=== PATIENT | male | born 1945 | race Asian ===

== ENCOUNTER 2021-03-09 18:15 | Emergency (ER) | payer OTHER ==
[~2021-03-09] VITALS: Ht 180.3 cm; Wt 63.5 kg
[2021-03-09 18:53] VITALS: BP 102/68
[2021-03-09 19:43] LABS: BASOPHILS % (AUTO) 0.2 % (0.0-2.0); EOSINOPHILS # (AUTO) 0.1 K/uL (0-0.4); EOSINOPHILS % (AUTO) 2.3 % (0.0-4.0); HEMATOCRIT 40.8 % (36-52); HEMOGLOBIN 13.5 g/dL (12.0-18.0); LYMPHOCYTES # (AUTO) 1.2 K/uL (2.0-11.5); LYMPHOCYTES % (AUTO) 22.1 % (20.5-51.1); MEAN CORPUSCULAR HEMOGLOBIN 30 pg (27-31); MEAN CORPUSCULAR HGB CONC 33 g/dL (33-37); MEAN CORPUSCULAR VOLUME 90.6 fL (80-94); MONOCYTES # (AUTO) 0.4 K/uL (0.8-1.0); MONOCYTES % (AUTO) 7.2 % (1.7-9.3); NEUTROPHILS # (AUTO) 3.6 K/uL (1.8-7.7); NEUTROPHILS % (AUTO) 68.2 % (42.2-75.2); PLATELET COUNT (AUTO) 332 K/uL (140-450); RED BLOOD CELL COUNT(AUTO) 4.51 MIL/uL (4.20-6.10); RED CELL DISTRIBUTION WIDTH 13.4 % (11.6-13.7); WHITE BLOOD COUNT (AUTO) 5.3 K/uL (4.8-10.8)
[2021-03-09 19:55] LABS: ALBUMIN 3.4 g/dL (3.4-5.0); ANION GAP 12.4 (8-16); ASPARTATE AMINOTRANSFERASE 12 U/L (15-37); CARBON DIOXIDE 25.9 mmol/L (21-32); CHLORIDE 103 mmol/L (98-107); CREATININE 2.1 mg/dL (0.6-1.3); GLUCOSE 194 mg/dL (74-106); POTASSIUM 4.3 mmol/L (3.5-5.1); SODIUM SERUM 137 mmol/L (136-145); TOTAL BILIRUBIN 0.6 mg/dL (0.0-1.0); UREA NITROGEN, BLOOD 33 mg/dL (7-18)
[2021-03-09] MEDS ORDERED: NACL 0.9% 1,000 ML IV ONE (20:10)
[2021-03-10 10:35] VITALS: BP 139/69
== END 2021-03-10 10:39 | disposition designated cancer center or children's hospital (05) ==
LOC: MED 18:15
DX: N18.9 Chronic kidney disease, unspecified (principal); E86.0 Dehydration; F03.90 Unspecified dementia, unspecified severity, without behavioral disturbance, psychotic disturbance, mood disturbance, and anxiety; E11.9 Type 2 diabetes mellitus without complications; F39 Unspecified mood [affective] disorder; Z86.73 Personal history of transient ischemic attack (TIA), and cerebral infarction without residual deficits
CPT/HCPCS: 36415; 80053; 85025; 96360; 99283; J7030

== ENCOUNTER 2021-04-18 05:45 | Inpatient (IN) | payer OTHER, SELFPAY ==
[~2021-04-18] VITALS: Ht 180.3 cm; Wt 49.9 kg
[2021-04-18 05:45] VITALS: BP 126/73
[2021-04-18] MEDS ORDERED: NACL 0.9% 1,000 ML IV ONE ×2 (06:15→07:20)
[2021-04-18] MEDS ORDERED: LEVALBUTEROL 0.63 MG/3 ML NEBU INH ONE (06:15)
[2021-04-18] MEDS ORDERED: HYDR100T49 PO (06:18)
[2021-04-18] MEDS ORDERED: DOCU-299 PO (06:18)
[2021-04-18] MEDS ORDERED: METO25TE2 PO (06:18)
[2021-04-18] MEDS ORDERED: TAMS0.4C96 PO (06:18)
[2021-04-18] MEDS ORDERED: SIMV20TA1 PO (06:18)
[2021-04-18] MEDS ORDERED: OMEP20TC10 PO (06:18)
[2021-04-18] MEDS ORDERED: LACT1CAP50 PO (06:18)
[2021-04-18] MEDS ORDERED: AMLO5TAB PO (06:18)
[2021-04-18] MEDS ORDERED: SODI650T2 PO (06:18)
[2021-04-18 06:26] LABS: HEMATOCRIT 45.3 % (36-52); HEMOGLOBIN 14.9 g/dL (12.0-18.0); MEAN CORPUSCULAR HEMOGLOBIN 31 pg (27-31); MEAN CORPUSCULAR HGB CONC 33 g/dL (33-37); MEAN CORPUSCULAR VOLUME 93.9 fL (80-94); PLATELET COUNT (AUTO) 443 K/uL (140-450); RED BLOOD CELL COUNT(AUTO) 4.83 MIL/uL (4.20-6.10); RED CELL DISTRIBUTION WIDTH 15.1 % (11.6-13.7); WHITE BLOOD COUNT (AUTO) 21.4 K/uL (4.8-10.8)
[2021-04-18 06:48] LABS: LYMPHOCYTES % (MANUAL) 6 % (20-46); MONOCYTES % (MANUAL) 9 % (5-12)
[2021-04-18] MEDS ORDERED: PIPERACILLIN/TAZOBACTAM 3.375 GM in DEXTROSE 5% 50 ML IV ONE (07:00)
[2021-04-18 07:05] LABS: ALBUMIN 2.4 g/dL (3.4-5.0); ANION GAP 25.7 (8-16); ASPARTATE AMINOTRANSFERASE 18 U/L (15-37); CHLORIDE 117 mmol/L (98-107); CREATININE 3.8 mg/dL (0.6-1.3); GLUCOSE 219 mg/dL (74-106); LIPASE 113 U/L (73-393); POTASSIUM 4.7 mmol/L (3.5-5.1); SODIUM SERUM 153 mmol/L (136-145); TOTAL BILIRUBIN 0.5 mg/dL (0.0-1.0)
[2021-04-18 07:09] LABS: PROTHROMBIN TIME 11.3 secs (10.8-13.4)
[2021-04-18 07:13] LABS: UREA NITROGEN, BLOOD 124 mg/dL (7-18)
[2021-04-18] MEDS ORDERED: ASPIRIN 600 MG SUPP RC ONE (07:20)
[2021-04-18] MEDS ORDERED: PIPERACILLIN/TAZOBACTAM 3.375 GM VIAL IV ONE (07:27)
[2021-04-18 07:33] LABS: APPEARANCE,URINE CLEAR (CLEAR); BILIRUBIN,URINE NEGATIVE (NEGATIVE); BLOOD, URINE NEGATIVE (NEGATIVE); COLOR,URINE YELLOW (YELLOW); LEUKOCYTE ESTERASE ,URINE NEGATIVE (NEGATIVE); NITRITE, URINE NEGATIVE (NEGATIVE); PH,URINE 5.5 (5.0-9.0); UGLUCOSE NEGATIVE (NEGATIVE)
[2021-04-18 07:39] LABS: RBC,URINE 0-5 /HPF (0-5); URINE AMORPHOUS URATE 1+ /HPF (None Seen); WBC,URINE 0-5 /HPF (0-5)
[2021-04-18] MEDS ORDERED: ACETAMINOPHEN 325 MG TAB PO PRN (08:50)
[2021-04-18] MEDS ORDERED: ONDANSETRON 4 MG/2 ML VIAL IM/IVP PRN (08:50)
[2021-04-18] MEDS ORDERED: HYDROcodone/APAP 7.5/325 MG 1 TAB PO PRN (08:50)
[2021-04-18] MEDS ORDERED: DOCUSATE SODIUM 100 MG GELCAP PO PRN (08:50)
[2021-04-18] MEDS ORDERED: ZOLPIDEM 5 MG TAB PO PRN (08:50)
[2021-04-18] MEDS ORDERED: POTASSIUM CHLORIDE 10 MEQ TABER PO PRN (08:50)
[2021-04-18] MEDS ORDERED: guaiFENesin DM 200/20 MG-10 ML 10 ML UDC PO PRN (08:50)
[2021-04-18] MEDS ORDERED: NACL 0.9% 1,000 ML IV SCH (08:55)
[2021-04-18] MEDS ORDERED: NON-FORMULARY ITEM (Hydralazine HCl (Hydralazine Hcl) 1 TAB) PO SCH (09:00)
[2021-04-18 09:35] VITALS: BP 113/47
[2021-04-18 10:10] LABS: CHOL/HDL RATIO 3.3 (1-4.5); FREE T4 (FREE THYROXINE) 1.02 ng/dL (0.76-1.46); MAGNESIUM 2.9 mg/dL (1.8-2.4); PHOSPHORUS 5.8 mg/dL (2.5-4.9); THYROID STIMULATING HORMONE 0.94 uIU/mL (0.34-3.74)
[2021-04-18] MEDS: amLODIPine 5 MG TAB PO SCH (11:02)
[2021-04-18] MEDS: PANTOPRAZOLE 40 MG TABEC PO SCH (11:03)
[2021-04-18 12:00] VITALS: BP 114/51
[2021-04-18] MEDS: hydrALAZINE 25 MG TAB PO SCH ×2 (13:00→21:45)
[2021-04-18] MEDS: PIPERACILLIN/TAZOBACTAM 2.25 GM in DEXTROSE 5% 50 ML IV SCH ×2 (13:24→22:18)
[2021-04-18] MEDS: HYDRAGUARD CREAM TP SCH (13:24)
[2021-04-18] MEDS: THERAHONEY GEL 42.5 GM TP SCH (13:25)
[2021-04-18 16:00] VITALS: BP 118/62
[2021-04-18] MEDS: NACL 0.45% 1,000 ML IV SCH ×2 (17:15→22:10)
[2021-04-18 20:00] VITALS: BP 128/63
[2021-04-18] MEDS: TAMSULOSIN 0.4 MG CAP PO SCH (21:45)
[2021-04-18] MEDS: SIMVASTATIN 20 MG TAB PO SCH (21:46)
[2021-04-19] VITALS: BP 112/50
[2021-04-19] MEDS: HYDRAGUARD CREAM TP SCH ×2 (01:37→12:45)
[2021-04-19 04:00] VITALS: BP 175/103
[2021-04-19] MEDS: hydrALAZINE 25 MG TAB PO SCH ×3 (05:00→20:04)
[2021-04-19] MEDS: PIPERACILLIN/TAZOBACTAM 2.25 GM in DEXTROSE 5% 50 ML IV SCH ×3 (05:27→20:06)
[2021-04-19 06:06] LABS: BASOPHILS % (AUTO) 0.1 % (0.0-2.0); HEMATOCRIT 36.3 % (36-52); HEMOGLOBIN 12.1 g/dL (12.0-18.0); LYMPHOCYTES # (AUTO) 0.9 K/uL (2.0-11.5); LYMPHOCYTES % (AUTO) 7.6 % (20.5-51.1); MEAN CORPUSCULAR HEMOGLOBIN 31 pg (27-31); MEAN CORPUSCULAR HGB CONC 33 g/dL (33-37); MEAN CORPUSCULAR VOLUME 93.5 fL (80-94); MONOCYTES # (AUTO) 0.9 K/uL (0.8-1.0); MONOCYTES % (AUTO) 7.9 % (1.7-9.3); NEUTROPHILS # (AUTO) 9.8 K/uL (1.8-7.7); NEUTROPHILS % (AUTO) 84.4 % (42.2-75.2); PLATELET COUNT (AUTO) 260 K/uL (140-450); RED BLOOD CELL COUNT(AUTO) 3.88 MIL/uL (4.20-6.10); RED CELL DISTRIBUTION WIDTH 15.2 % (11.6-13.7); WHITE BLOOD COUNT (AUTO) 11.7 K/uL (4.8-10.8)
[2021-04-19 06:07] LABS: T4 (THYROXINE) 5.1 ug/dL (4.5-12.0)
[2021-04-19 07:10] LABS: CARBON DIOXIDE 13.2 mmol/L (21-32); CHLORIDE 122 mmol/L (98-107); CREATININE 3.4 mg/dL (0.6-1.3); GLUCOSE 235 mg/dL (74-106); POTASSIUM 4.2 mmol/L (3.5-5.1)
[2021-04-19 07:34] LABS: SODIUM SERUM 157 mmol/L (136-145); UREA NITROGEN, BLOOD 104 mg/dL (7-18)
[2021-04-19 08:00] VITALS: BP 109/54
[2021-04-19] MEDS: amLODIPine 5 MG TAB PO SCH (08:52)
[2021-04-19] MEDS: ASPIRIN 81 MG TAB.CHEW PO SCH (08:52)
[2021-04-19] MEDS: PANTOPRAZOLE 40 MG TABEC PO SCH (08:52)
[2021-04-19] MEDS: METOPROLOL SUCCINATE 50 MG TABER PO SCH (08:52)
[2021-04-19] MEDS: NACL 0.45% 1,000 ML IV SCH (09:00)
[2021-04-19] MEDS ORDERED: METOPROLOL 25 MG TAB PO SCH (09:00)
[2021-04-19] MEDS: DEXTROSE 5% 1,000 ML IV SCH ×2 (10:30→20:12)
[2021-04-19 12:00] VITALS: BP 109/72
[2021-04-19 12:26] LABS: CHLORIDE,URINE RANDOM 36 mmol/L (110-250); URINE SODIUM, RANDOM 13 mmol/l (40-220)
[2021-04-19] MEDS: THERAHONEY GEL 42.5 GM TP SCH (12:46)
[2021-04-19 16:00] VITALS: BP 112/43
[2021-04-19 20:00] VITALS: BP 109/53
[2021-04-19] MEDS: SIMVASTATIN 20 MG TAB PO SCH (20:05)
[2021-04-19] MEDS: TAMSULOSIN 0.4 MG CAP PO SCH (20:06)
[2021-04-20] VITALS: BP 108/52
[2021-04-20] MEDS: HYDRAGUARD CREAM TP SCH ×2 (01:26→13:00)
[2021-04-20 04:00] VITALS: BP 116/50
[2021-04-20] MEDS: hydrALAZINE 25 MG TAB PO SCH ×3 (05:00→20:53)
[2021-04-20] MEDS: PIPERACILLIN/TAZOBACTAM 2.25 GM in DEXTROSE 5% 50 ML IV SCH ×3 (05:15→20:26)
[2021-04-20 05:34] LABS: ANION GAP 16.2 (8-16); CARBON DIOXIDE 17.5 mmol/L (21-32); CHLORIDE 117 mmol/L (98-107); GLUCOSE 248 mg/dL (74-106); POTASSIUM 3.7 mmol/L (3.5-5.1); SODIUM SERUM 147 mmol/L (136-145)
[2021-04-20 05:56] LABS: UREA NITROGEN, BLOOD 78 mg/dL (7-18)
[2021-04-20 06:14] LABS: BASOPHILS % (AUTO) 0.1 % (0.0-2.0); EOSINOPHILS # (AUTO) 0.1 K/uL (0-0.4); EOSINOPHILS % (AUTO) 0.8 % (0.0-4.0); HEMOGLOBIN 11.6 g/dL (12.0-18.0); LYMPHOCYTES # (AUTO) 1.4 K/uL (2.0-11.5); LYMPHOCYTES % (AUTO) 14.1 % (20.5-51.1); MEAN CORPUSCULAR HEMOGLOBIN 31 pg (27-31); MEAN CORPUSCULAR HGB CONC 33 g/dL (33-37); MEAN CORPUSCULAR VOLUME 94.2 fL (80-94); MONOCYTES # (AUTO) 0.6 K/uL (0.8-1.0); MONOCYTES % (AUTO) 6.3 % (1.7-9.3); NEUTROPHILS % (AUTO) 78.7 % (42.2-75.2); PLATELET COUNT (AUTO) 257 K/uL (140-450); RED BLOOD CELL COUNT(AUTO) 3.72 MIL/uL (4.20-6.10); RED CELL DISTRIBUTION WIDTH 14.9 % (11.6-13.7); WHITE BLOOD COUNT (AUTO) 10.1 K/uL (4.8-10.8)
[2021-04-20] MEDS: DEXTROSE 5% 1,000 ML IV SCH (06:20)
[2021-04-20 08:00] VITALS: BP 108/57
[2021-04-20] MEDS: amLODIPine 5 MG TAB PO SCH (09:00)
[2021-04-20] MEDS: PANTOPRAZOLE 40 MG TABEC PO SCH (09:00)
[2021-04-20] MEDS: ASPIRIN 81 MG TAB.CHEW PO SCH (09:00)
[2021-04-20] MEDS: METOPROLOL SUCCINATE 50 MG TABER PO SCH (09:00)
[2021-04-20] MEDS: NACL 0.45% 1,000 ML IV SCH ×2 (10:27→20:52)
[2021-04-20 12:00] VITALS: BP 115/60
[2021-04-20] MEDS: THERAHONEY GEL 42.5 GM TP SCH (13:00)
[2021-04-20 16:00] VITALS: BP 112/43
[2021-04-20 20:00] VITALS: BP 118/79
[2021-04-20] MEDS: SIMVASTATIN 20 MG TAB PO SCH (20:53)
[2021-04-20] MEDS: TAMSULOSIN 0.4 MG CAP PO SCH (20:53)
[2021-04-21] VITALS: BP 119/64
[2021-04-21] MEDS: NACL 0.45% 1,000 ML IV SCH (00:17)
[2021-04-21] MEDS: HYDRAGUARD CREAM TP SCH ×2 (01:29→13:00)
[2021-04-21 04:00] VITALS: BP 113/60
[2021-04-21] MEDS: hydrALAZINE 25 MG TAB PO SCH ×4 (05:00→21:29)
[2021-04-21] MEDS: PIPERACILLIN/TAZOBACTAM 2.25 GM in DEXTROSE 5% 50 ML IV SCH ×3 (05:09→21:29)
[2021-04-21 07:32] LABS: ANION GAP 18.8 (8-16); CARBON DIOXIDE 14.8 mmol/L (21-32); CHLORIDE 114 mmol/L (98-107); CREATININE 2.5 mg/dL (0.6-1.3); GLUCOSE 138 mg/dL (74-106); POTASSIUM 3.6 mmol/L (3.5-5.1); SODIUM SERUM 144 mmol/L (136-145); UREA NITROGEN, BLOOD 58 mg/dL (7-18)
[2021-04-21 07:33] LABS: BASOPHILS % (AUTO) 0.1 % (0.0-2.0); EOSINOPHILS # (AUTO) 0.1 K/uL (0-0.4); EOSINOPHILS % (AUTO) 0.5 % (0.0-4.0); HEMOGLOBIN 12.3 g/dL (12.0-18.0); LYMPHOCYTES # (AUTO) 1.3 K/uL (2.0-11.5); LYMPHOCYTES % (AUTO) 9.7 % (20.5-51.1); MEAN CORPUSCULAR HEMOGLOBIN 31 pg (27-31); MEAN CORPUSCULAR HGB CONC 33 g/dL (33-37); MEAN CORPUSCULAR VOLUME 91.7 fL (80-94); MONOCYTES # (AUTO) 0.7 K/uL (0.8-1.0); MONOCYTES % (AUTO) 5.2 % (1.7-9.3); NEUTROPHILS # (AUTO) 11.5 K/uL (1.8-7.7); NEUTROPHILS % (AUTO) 84.5 % (42.2-75.2); PLATELET COUNT (AUTO) 241 K/uL (140-450); RED BLOOD CELL COUNT(AUTO) 4.03 MIL/uL (4.20-6.10); RED CELL DISTRIBUTION WIDTH 14.4 % (11.6-13.7); WHITE BLOOD COUNT (AUTO) 13.6 K/uL (4.8-10.8)
[2021-04-21 08:00] VITALS: BP 120/61
[2021-04-21] MEDS: PANTOPRAZOLE 40 MG TABEC PO SCH (09:00)
[2021-04-21] MEDS: amLODIPine 5 MG TAB PO SCH (09:41)
[2021-04-21] MEDS: METOPROLOL SUCCINATE 50 MG TABER PO SCH (09:41)
[2021-04-21] MEDS: ASPIRIN 81 MG TAB.CHEW PO SCH (09:41)
[2021-04-21] MEDS: DEXT 5% / NACL 0.45% 1,000 ML IV SCH ×2 (11:36→23:20)
[2021-04-21 12:00] VITALS: BP_SYST 125; BP_DIAS 53; BP_DIAS 63
[2021-04-21] MEDS: THERAHONEY GEL 42.5 GM TP SCH (13:00)
[2021-04-21 16:00] VITALS: BP 117/62
[2021-04-21 20:00] VITALS: BP 120/61
[2021-04-21] MEDS: TAMSULOSIN 0.4 MG CAP PO SCH ×2 (21:00→21:30)
[2021-04-21] MEDS: SIMVASTATIN 20 MG TAB PO SCH (21:30)
[2021-04-22] VITALS (67 sets, daily range): BP systolic 47–140; BP diastolic 5–74
[2021-04-22] MEDS ORDERED: FUROSEMIDE 20 MG/2 ML VIAL IVP SCH (00:55)
[2021-04-22] MEDS ORDERED: hydrALAZINE 20 MG/ML VIAL IVP SCH (00:55)
[2021-04-22] MEDS: HYDRAGUARD CREAM TP SCH ×2 (01:04→13:12)
[2021-04-22] MEDS ORDERED: PROPOFOL 1000 MG/100 ML PREMIX 100 ML IV ONE (04:31)
[2021-04-22] MEDS ORDERED: DOPPLER MC ONE (04:47)
[2021-04-22] MEDS ORDERED: AMIODARONE 450 MG in DEXTROSE 5% 250 ML IV STA (04:57)
[2021-04-22] MEDS ORDERED: AMIODARONE 150 MG in DEXTROSE 5% 100 ML IV STA (04:57)
[2021-04-22] MEDS: hydrALAZINE 25 MG TAB PO SCH ×3 (05:00→20:44)
[2021-04-22] MEDS: PIPERACILLIN/TAZOBACTAM 2.25 GM in DEXTROSE 5% 50 ML IV SCH ×3 (05:00→20:39)
[2021-04-22] MEDS ORDERED: PROPOFOL 1000 MG/100 ML PREMIX 100 ML IV PRN (05:05)
[2021-04-22] MEDS ORDERED: NOREPINEPHRINE 4 MG/4 ML VIAL IV ONE (05:12)
[2021-04-22] MEDS: amLODIPine 5 MG TAB PO SCH (08:40)
[2021-04-22] MEDS: METOPROLOL SUCCINATE 50 MG TABER PO SCH (08:41)
[2021-04-22] MEDS: ASPIRIN 81 MG TAB.CHEW PO SCH (09:56)
[2021-04-22] MEDS: PANTOPRAZOLE 40 MG TABEC PO SCH (09:56)
[2021-04-22] MEDS: DEXT 5% / NACL 0.45% 1,000 ML IV SCH ×3 (09:56→23:40)
[2021-04-22 10:03] LABS: ANION GAP 23.5 (8-16); CARBON DIOXIDE 13.7 mmol/L (21-32); CHLORIDE 113 mmol/L (98-107); CREATININE 2.7 mg/dL (0.6-1.3); GLUCOSE 334 mg/dL (74-106); POTASSIUM 4.2 mmol/L (3.5-5.1); SODIUM SERUM 146 mmol/L (136-145); UREA NITROGEN, BLOOD 53 mg/dL (7-18)
[2021-04-22 10:16] LABS: HEMATOCRIT 39.4 % (36-52); HEMOGLOBIN 12.4 g/dL (12.0-18.0); MEAN CORPUSCULAR HEMOGLOBIN 31 pg (27-31); MEAN CORPUSCULAR HGB CONC 32 g/dL (33-37); MEAN CORPUSCULAR VOLUME 97.3 fL (80-94); PLATELET COUNT (AUTO) 298 K/uL (140-450); RED BLOOD CELL COUNT(AUTO) 4.05 MIL/uL (4.20-6.10); RED CELL DISTRIBUTION WIDTH 15.5 % (11.6-13.7)
[2021-04-22 10:37] LABS: WHITE BLOOD COUNT (AUTO) 38.5 K/uL (4.8-10.8)
[2021-04-22 10:38] LABS: LYMPHOCYTES % (MANUAL) 3 % (20-46); MONOCYTES % (MANUAL) 5 % (5-12)
[2021-04-22] MEDS ORDERED: NOREPINEPHRINE 16 MG in DEXTROSE 5% 250 ML IV PRN (11:40)
[2021-04-22] MEDS: THERAHONEY GEL 42.5 GM TP SCH (13:12)
[2021-04-22] MEDS ORDERED: DEXTROSE 50% 50 ML SYR IVP PRN (14:00)
[2021-04-22] MEDS ORDERED: INSULIN LISPRO SLIDING SCALE 100 UNITS/ML VIAL SUBQ PRN (14:00)
[2021-04-22] MEDS ORDERED: BLOOD GLUCOSE MONITORING 1 DEV DEV FS SCH (16:30)
[2021-04-22] MEDS ORDERED: NACL 0.45% 1,000 ML IV SCH (16:35)
[2021-04-22] MEDS ORDERED: INSULIN REGULAR, HUMAN 100 UNIT in NACL 0.9% 100 ML IV SCH ×2 (18:40)
[2021-04-22] MEDS: BLOOD GLUCOSE MONITORING 1 DEV DEV FS SCH ×6 (19:08→23:40)
[2021-04-22] MEDS: NACL 0.45% 1,000 ML IV SCH ×2 (19:09→23:40)
[2021-04-22] MEDS: TAMSULOSIN 0.4 MG CAP PO SCH (20:44)
[2021-04-22] MEDS: SIMVASTATIN 20 MG TAB PO SCH (20:44)
[2021-04-22] MEDS ORDERED: SODIUM BICARBONATE 8.4% PFS 50 MEQ/50 ML SYR IVP ONE (21:57)
[2021-04-22] MEDS ORDERED: SODIUM BICARBONATE 8.4% PFS 50 MEQ/50 ML SYR IVP SCH (22:35)
[2021-04-22 22:47] LABS: ANION GAP 18.1 (8-16); CARBON DIOXIDE 15.2 mmol/L (21-32); CHLORIDE 109 mmol/L (98-107); CREATININE 2.8 mg/dL (0.6-1.3); POTASSIUM 3.3 mmol/L (3.5-5.1); SODIUM SERUM 139 mmol/L (136-145); UREA NITROGEN, BLOOD 58 mg/dL (7-18)
[2021-04-22 23:06] LABS: GLUCOSE 490 mg/dL (74-106)
[2021-04-22] MEDS ORDERED: PHENYLEPHRINE 40 MG in NACL 0.9% 250 ML IV PRN (23:55)
[2021-04-23] VITALS (12 sets, daily range): BP systolic 110–135; BP diastolic 57–96
[2021-04-23] MEDS ORDERED: VASOPRESSIN 20 UNITS/ML VIAL ONE (00:02)
[2021-04-23] MEDS: VASOPRESSIN 20 UNITS in NACL 0.9% 250 ML IV PRN ×2 (00:03→01:11)
[2021-04-23] MEDS: BLOOD GLUCOSE MONITORING 1 DEV DEV FS SCH ×2 (00:46→02:05)
[2021-04-23] MEDS: HYDRAGUARD CREAM TP SCH (01:09)
[2021-04-23] MEDS ORDERED: PANTOPRAZOLE 40 MG INJ VIAL IVP SCH (06:00)
== END 2021-04-23 10:50 | DRG 871 ==
LOC: MED 05:45 → MTU 07:54 → MIC 04-22 06:37
PROVIDERS: ADMIT Family Medicine; ATTEND Family Medicine
PROC: 06HY33Z Insertion of Infusion Device into Lower Vein, Percutaneous Approach (ICD-10-PCS; principal; 2021-04-22)
PROC: B54CZZA Ultrasonography of Left Lower Extremity Veins, Guidance (ICD-10-PCS; 2021-04-22)
PROC: 5A1935Z Respiratory Ventilation, Less than 24 Consecutive Hours (ICD-10-PCS; 2021-04-22)
PROC: 0BH17EZ Insertion of Endotracheal Airway into Trachea, Via Natural or Artificial Opening (ICD-10-PCS; 2021-04-22)
DX: A41.9 Sepsis, unspecified organism (principal); J69.0 Pneumonitis due to inhalation of food and vomit; E43 Unspecified severe protein-calorie malnutrition; N17.0 Acute kidney failure with tubular necrosis; I21.A1 Myocardial infarction type 2; J96.01 Acute respiratory failure with hypoxia; E87.0 Hyperosmolality and hypernatremia; I69.354 Hemiplegia and hemiparesis following cerebral infarction affecting left non-dominant side; G93.40 Encephalopathy, unspecified; E11.22 Type 2 diabetes mellitus with diabetic chronic kidney disease; E78.5 Hyperlipidemia, unspecified; E86.0 Dehydration; E86.1 Hypovolemia; I12.9 Hypertensive chronic kidney disease with stage 1 through stage 4 chronic kidney disease, or unspecified chronic kidney disease; N18.9 Chronic kidney disease, unspecified; N40.0 Benign prostatic hyperplasia without lower urinary tract symptoms; R13.10 Dysphagia, unspecified; K21.9 Gastro-esophageal reflux disease without esophagitis; N32.3 Diverticulum of bladder; I25.10 Atherosclerotic heart disease of native coronary artery without angina pectoris; R65.20 Severe sepsis without septic shock; I46.9 Cardiac arrest, cause unspecified; Z20.822 Contact with and (suspected) exposure to COVID-19
CPT/HCPCS: 36415; 36600; 70450; 71045; 71250; 76770; 80048; 80053; 81001; 82150; 82436; 82803; 82948; 83036; 83605; 83690; 83735; 83880; 84100; 84300; 84436; 84439; 84443; 84479; 84484; 85025; 85610; 87040; 87070; 87081; 87086; 87205; 89220; 92610; 92700; 92950; 93005; 94002; 96365; 99285; C1758; J0282; J0360; J1644; J1940; J2543; J2704; J3490; J7060